=== PATIENT | male | born 1990 | race Caucasian/White ===

== ENCOUNTER 2016-09-28 04:09 | Emergency (ER) | payer OTHER ==
[~2016-09-28] VITALS: Ht 185.4 cm; Wt 88.0 kg
[~2016-09-28 04:09] MED LIST: DRV100 PO
[2016-09-28 04:20] VITALS: BP 151/99; TEMP 37; Ht 185.4 cm; Wt 88.0 kg
[2016-09-28] MEDS ORDERED: PROPARACAINE HCL 0.5% OP SOLN 15 ML BTL OP STA (04:32)
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
[2016-09-28 06:00] VITALS: PULSE 98; O2SAT 100
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
== END 2016-09-28 06:01 | disposition home or self-care (01) ==
LOC: C.EDB 04:10 → C.EDA 06:01
DX: S00.12XA Contusion of left eyelid and periocular area, initial encounter (principal); H11.33 Conjunctival hemorrhage, bilateral; H20.9 Unspecified iridocyclitis; Y04.2XXA Assault by strike against or bumped into by another person, initial encounter; Y92.89 Other specified places as the place of occurrence of the external cause